=== PATIENT | male | born 1970 | race Caucasian/White ===

== ENCOUNTER 2022-09-12 17:27 | Inpatient (IN) | payer OTHER ==
[2022-09-12 19:26] LABS: BASO % 0.6 % (0-2.0); EOS % 1.4 % (0-4.5); HEMATOCRIT 37.7 % (35.4-49); HEMOGLOBIN 13.4 GM/dL (11.7-16.9); LYMPH % 31.2 % (8-40); MCH 30.8 pg (25.7-33.7); MCHC 35.5 g/dl (32.0-35.9); MEAN CELL VOLUME 86.9 fl (80-96); MEAN PLT VOLUME 8.4 fl (7.5-11.1); NEUT % 57.8 % (42.8-82.8); PLATELET COUNT 296 10^3/uL (134-434); RBC 4.33 M/mm3 (4.00-5.60); RDW 14.1 % (11.9-15.9)
[2022-09-12 19:32] LABS: INR 1.21 (0.83-1.09)
[2022-09-12 19:34] LABS: ACTIVATED PTT 39.1 SECONDS (25.2-36.5)
[2022-09-12 19:41] LABS: CHLORIDE 104 mmol/L (98-107); SODIUM 139 mmol/L (136-145)
[2022-09-12 19:43] LABS: CALCIUM 9.2 mg/dL (8.5-10.1)
[2022-09-12 19:44] LABS: ALBUMIN 3.4 g/dl (3.4-5.0); BLOOD UREA NITROGEN 8.9 mg/dL (7-18); CO2 27 mmol/L (21-32); GLUCOSE,RANDOM 83 mg/dL (74-106)
[2022-09-12 19:47] LABS: CREATININE 0.5 mg/dL (0.55-1.3); SGOT/AST 19 U/L (15-37); SGPT/ALT 21 U/L (13-61)
[2022-09-12 19:48] LABS: BILIRUBIN,TOTAL 0.9 mg/dL (0.2-1)
[2022-09-12 19:49] LABS: TOT PROT 7.7 g/dl (6.4-8.2)
[2022-09-12 19:50] LABS: ALK PHOS 115 U/L (45-117)
[2022-09-12 20:07] LABS: ANION GAP 8 MMOL/L (8-16); LACTIC ACID 2.2 mmol/L (0.4-2.0); POTASSIUM 2.9 mmol/L (3.5-5.1)
[2022-09-12 20:09] LABS: ERYTHROCYTE SEDIMENTATION RATE 25 mm/hr (0-20)
[2022-09-12] MEDS ORDERED: LACTATED RINGERS SOLUTION 1000 ML INFUS.BAG IV ONE (20:17)
[2022-09-12] MEDS ORDERED: KCL 10 MEQ IVPB 30 MEQ/300 ML INFUS.BAG IVPB ONE (20:32)
[2022-09-12 20:35] LABS: MAGNESIUM 1.8 mg/dL (1.8-2.4)
[2022-09-12] MEDS ORDERED: PIPERACILLIN/TAZOB 4.5 GM 4.5 GM in DEXTROSE 5%-WATER 100 ML IVPB ONE (20:38)
[2022-09-12] MEDS: KCL 10 MEQ IVPB 10 MEQ/100 ML INFUS.BAG IVPB SCH ×3 (20:40→23:48)
[2022-09-12] MEDS ORDERED: PIPERACILLIN/TAZOB 4.5 GM 4.5 GM/100 ML BAG IVPB ONE (20:41)
[2022-09-12] MEDS ORDERED: POTASSIUM CHLORIDE ORAL LIQUID 20 MEQ/15 ML PO ONE (20:50)
[2022-09-12] MEDS ORDERED: POTASSIUM CHLORIDE ORAL LIQUID 20 MEQ/15 ML ONE (21:10)
[2022-09-13] MEDS ORDERED: VANCOMYCIN 1,000 MG in DEXTROSE 5%-WATER - 250 ML IVPB SCH (01:15)
[2022-09-13 01:30] LABS: EPI CELLS 9 /uL (0-25.1); HYALINE CASTS 6 /uL (0-3.1); PH,URINE 7.5 (5.0-8.0); URINE APPEARANCE CLOUDY; URINE BACTERIA >9,000 /uL (0-1359); URINE BILIRUBIN NEGATIVE (NEGATIVE); URINE COLOR YELLOW; URINE GLUCOSE (UA) NEGATIVE (NEGATIVE); URINE KETONE 1+ (NEGATIVE); URINE LEUK ESTERASE 3+ (NEGATIVE); URINE NITRITE POSITIVE (NEGATIVE); URINE PROTEIN NEGATIVE (NEGATIVE); URINE RBC 40 /uL (0-23.9); URINE WBC 649 /uL (0-25.8)
[2022-09-13] MEDS ORDERED: PATIENT'S OWN MEDICATION (NON-FORMULARY) (Baclofen [Baclofen] 20 MG Tablet) GT SCH (03:30)
[2022-09-13] MEDS ORDERED: PIPERACILLIN/TAZOB 3.375 GM 3.375 GM in DEXTROSE 5%-WATER - 50 ML IVPB SCH (05:00)
[2022-09-13] MEDS ORDERED: PIPERACILLIN/TAZOB 3.375 GM 3.375 GM/50 ML BAG IVPB ONE (05:46)
[2022-09-13] MEDS ORDERED: VANCOMYCIN 500 MG VIAL (RESTRICTED TO ID ONLY) ONE (05:46)
[2022-09-13] MEDS: VANCOMYCIN 1,000 MG in DEXTROSE 5%-WATER - 250 ML IVPB SCH ×2 (05:52→14:24)
[2022-09-13] MEDS ORDERED: BACLOFEN 10 MG TABLET (FP) ONE (06:22)
[2022-09-13 06:46] LABS: BASO % 0.5 % (0-2.0); EOS % 1.4 % (0-4.5); HEMATOCRIT 33.5 % (35.4-49); HEMOGLOBIN 11.9 GM/dL (11.7-16.9); LYMPH % 16.9 % (8-40); MCH 30.4 pg (25.7-33.7); MCHC 35.5 g/dl (32.0-35.9); MEAN CELL VOLUME 85.7 fl (80-96); MEAN PLT VOLUME 8.2 fl (7.5-11.1); MONO % 8.8 % (3.8-10.2); NEUT % 72.4 % (42.8-82.8); PLATELET COUNT 278 10^3/uL (134-434); RBC 3.91 M/mm3 (4.00-5.60); RDW 14.1 % (11.9-15.9); WHITE BLOOD COUNT 8.9 K/mm3 (4.0-10.0)
[2022-09-13 06:51] LABS: POTASSIUM 3.3 mmol/L (3.5-5.1)
[2022-09-13 06:54] LABS: ALBUMIN 3.1 g/dl (3.4-5.0); CALCIUM 9.1 mg/dL (8.5-10.1)
[2022-09-13 06:55] LABS: BLOOD UREA NITROGEN 6.7 mg/dL (7-18); MAGNESIUM 1.4 mg/dL (1.8-2.4)
[2022-09-13 06:57] LABS: CREATININE 0.4 mg/dL (0.55-1.3); PHOSPHOROUS 2.1 mg/dL (2.5-4.9)
[2022-09-13 06:59] LABS: BILIRUBIN,TOTAL 1.2 mg/dL (0.2-1); TOT PROT 6.9 g/dl (6.4-8.2)
[2022-09-13] MEDS ORDERED: POTASSIUM CHLORIDE ORAL LIQUID 20 MEQ/15 ML PO ONE (09:53)
[2022-09-13] MEDS ORDERED: LISINOPRIL 5 MG TABLET ONE (12:13)
[2022-09-13] MEDS ORDERED: CHOLECALCIFEROL (VIT D3) 1,000 UNIT (25 MCG) TABLET ONE (12:13)
[2022-09-13] MEDS ORDERED: THIAMINE HCL 100 MG TABLET (FP) ONE (12:13)
[2022-09-13] MEDS ORDERED: ENOXAPARIN NA (PORCINE) 40 MG/0.4 ML DISP.SYRIN SQ ONE (12:14)
[2022-09-13] MEDS ORDERED: PIPERACILLIN/TAZOB 2.25 GM 2.25 GM/50 ML BAG IVPB ONE (12:14)
[2022-09-13] MEDS: PIPERACILLIN/TAZOB 3.375 GM 3.375 GM in DEXTROSE 5%-WATER - 50 ML IVPB SCH ×2 (12:31→14:24)
[2022-09-13] MEDS: INSULIN SLIDING SCALE (NOVOLOG) 1 VIAL SQ SCH ×2 (12:32→17:50)
[2022-09-13] MEDS: ASCORBIC ACID 500 MG/5 ML UNIT DOSE CUP GT SCH ×2 (12:33→22:55)
[2022-09-13] MEDS: LISINOPRIL 5 MG TABLET GT SCH (12:33)
[2022-09-13] MEDS: THIAMINE HCL 100 MG TABLET (FP) NGT SCH (12:33)
[2022-09-13] MEDS: ENOXAPARIN NA (PORCINE) 40 MG/0.4 ML DISP.SYRIN SQ SCH (12:33)
[2022-09-13] MEDS: CHOLECALCIFEROL (VIT D3) 1,000 UNIT (25 MCG) TABLET GT SCH (12:33)
[2022-09-13] MEDS: BACLOFEN 10 MG TABLET (FP) GT SCH ×2 (17:46→22:55)
[2022-09-13] MEDS ORDERED: DEXTROSE 5%-LACTATED RINGERS 1,000 ML IV SCH (21:15)
[2022-09-13] MEDS ORDERED: NAPH,MB-DB/K PH,MBDB POWDER PACKET GT ONE (21:19)
[2022-09-13] MEDS ORDERED: MAGNESIUM SULF 50% (8.12 MEQ/2 ML-1 GM VIAL) IVPB ONE (21:20)
[2022-09-13] MEDS ORDERED: DEXTROSE 50%-WATER 25 GM/50 ML DISP.SYRIN IVPUSH PRN (21:21)
[2022-09-13] MEDS ORDERED: THIAMINE HCL 200 MG/2 ML VIAL IVPB ONE (21:21)
[2022-09-13] MEDS: POLYETHYLENE GLYCOL (HEALTHYLAX) 3350 17 GM PACKET GT SCH (22:55)
[2022-09-14] MEDS: BACLOFEN 10 MG TABLET (FP) GT SCH ×3 (05:26→22:17)
[2022-09-14] MEDS: INSULIN SLIDING SCALE (NOVOLOG) 1 VIAL SQ SCH ×4 (06:08→22:17)
[2022-09-14 10:54] LABS: BASO % 0.4 % (0-2.0); EOS % 0.7 % (0-4.5); HEMATOCRIT 31.4 % (35.4-49); HEMOGLOBIN 10.8 GM/dL (11.7-16.9); LYMPH % 18.2 % (8-40); MCHC 34.4 g/dl (32.0-35.9); MEAN CELL VOLUME 87.3 fl (80-96); MEAN PLT VOLUME 7.6 fl (7.5-11.1); MONO % 12.3 % (3.8-10.2); NEUT % 68.4 % (42.8-82.8); PLATELET COUNT 247 10^3/uL (134-434); RDW 14.2 % (11.9-15.9); WHITE BLOOD COUNT 8.1 K/mm3 (4.0-10.0)
[2022-09-14 11:00] LABS: CHLORIDE 108 mmol/L (98-107); SODIUM 142 mmol/L (136-145)
[2022-09-14 11:03] LABS: CALCIUM 8.8 mg/dL (8.5-10.1)
[2022-09-14 11:04] LABS: ALBUMIN 2.7 g/dl (3.4-5.0); BLOOD UREA NITROGEN 6.8 mg/dL (7-18); CO2 27 mmol/L (21-32); GLUCOSE,RANDOM 132 mg/dL (74-106); MAGNESIUM 2.1 mg/dL (1.8-2.4)
[2022-09-14 11:07] LABS: CREATININE 0.6 mg/dL (0.55-1.3); SGOT/AST 14 U/L (15-37); SGPT/ALT 16 U/L (13-61)
[2022-09-14 11:09] LABS: BILIRUBIN,TOTAL 0.9 mg/dL (0.2-1); TOT PROT 6.1 g/dl (6.4-8.2)
[2022-09-14 11:10] LABS: ALK PHOS 84 U/L (45-117)
[2022-09-14] MEDS: THIAMINE HCL 100 MG TABLET (FP) NGT SCH (11:12)
[2022-09-14] MEDS: ASCORBIC ACID 500 MG/5 ML UNIT DOSE CUP GT SCH ×2 (11:12→22:18)
[2022-09-14] MEDS: CHOLECALCIFEROL (VIT D3) 1,000 UNIT (25 MCG) TABLET GT SCH (11:12)
[2022-09-14] MEDS: POLYETHYLENE GLYCOL (HEALTHYLAX) 3350 17 GM PACKET GT SCH ×2 (11:12→22:17)
[2022-09-14] MEDS: ENOXAPARIN NA (PORCINE) 40 MG/0.4 ML DISP.SYRIN SQ SCH (11:12)
[2022-09-14 11:17] LABS: ANION GAP 6 MMOL/L (8-16); POTASSIUM 2.9 mmol/L (3.5-5.1)
[2022-09-14] MEDS: LISINOPRIL 5 MG TABLET GT SCH (13:17)
[2022-09-14] MEDS: POTASSIUM CHLORIDE ORAL LIQUID 20 MEQ/15 ML GT SCH ×2 (13:18→22:17)
[2022-09-14 14:47] VITALS: BMI 23.3
[2022-09-15] MEDS: INSULIN SLIDING SCALE (NOVOLOG) 1 VIAL SQ SCH ×4 (06:04→21:45)
[2022-09-15] MEDS: BACLOFEN 10 MG TABLET (FP) GT SCH ×3 (06:05→21:48)
[2022-09-15] MEDS ORDERED: LACTATED RINGERS SOLUTION 1000 ML INFUS.BAG IV ONE (08:52)
[2022-09-15 10:09] LABS: BASO % 0.5 % (0-2.0); EOS % 1.2 % (0-4.5); HEMATOCRIT 31.3 % (35.4-49); HEMOGLOBIN 10.9 GM/dL (11.7-16.9); LYMPH % 30.4 % (8-40); MCH 30.2 pg (25.7-33.7); MCHC 34.8 g/dl (32.0-35.9); MEAN CELL VOLUME 86.7 fl (80-96); MEAN PLT VOLUME 7.4 fl (7.5-11.1); MONO % 14.1 % (3.8-10.2); NEUT % 53.8 % (42.8-82.8); PLATELET COUNT 257 10^3/uL (134-434); RBC 3.61 M/mm3 (4.00-5.60); RDW 14.4 % (11.9-15.9); WHITE BLOOD COUNT 6.1 K/mm3 (4.0-10.0)
[2022-09-15 10:21] LABS: POTASSIUM 3.9 mmol/L (3.5-5.1)
[2022-09-15 10:23] LABS: CALCIUM 8.8 mg/dL (8.5-10.1)
[2022-09-15 10:24] LABS: ALBUMIN 2.7 g/dl (3.4-5.0); BLOOD UREA NITROGEN 8.1 mg/dL (7-18); MAGNESIUM 1.7 mg/dL (1.8-2.4)
[2022-09-15 10:27] LABS: CREATININE 0.5 mg/dL (0.55-1.3); PHOSPHOROUS 2.3 mg/dL (2.5-4.9)
[2022-09-15 10:28] LABS: BILIRUBIN,TOTAL 0.8 mg/dL (0.2-1); TOT PROT 6.2 g/dl (6.4-8.2)
[2022-09-15] MEDS: CHOLECALCIFEROL (VIT D3) 1,000 UNIT (25 MCG) TABLET GT SCH (11:06)
[2022-09-15] MEDS: ENOXAPARIN NA (PORCINE) 40 MG/0.4 ML DISP.SYRIN SQ SCH (11:06)
[2022-09-15] MEDS: POLYETHYLENE GLYCOL (HEALTHYLAX) 3350 17 GM PACKET GT SCH ×2 (11:06→21:48)
[2022-09-15] MEDS: ASCORBIC ACID 500 MG/5 ML UNIT DOSE CUP GT SCH ×2 (11:06→21:49)
[2022-09-15] MEDS: THIAMINE HCL 100 MG TABLET (FP) NGT SCH (11:06)
[2022-09-15] MEDS: LISINOPRIL 5 MG TABLET GT SCH (11:26)
[2022-09-15 14:40] LABS: EPI CELLS >36 /uL (0-25.1); HYALINE CASTS 16 /uL (0-3.1); PH,URINE 6.5 (5.0-8.0); URINE APPEARANCE TURBID; URINE BACTERIA >9,000 /uL (0-1359); URINE BILIRUBIN NEGATIVE (NEGATIVE); URINE COLOR DK YELLOW; URINE GLUCOSE (UA) NEGATIVE (NEGATIVE); URINE KETONE TRACE (NEGATIVE); URINE LEUK ESTERASE 3+ (NEGATIVE); URINE NITRITE POSITIVE (NEGATIVE); URINE PROTEIN 2+ (NEGATIVE); URINE RBC 1891 /uL (0-23.9); URINE UROBILINOGEN 4.0 E.U/dl mg/dL (0.2-1.0); URINE WBC 3791 /uL (0-25.8)
[2022-09-15] MEDS ORDERED: CEFTRIAXONE 1 GM in DEXTROSE 5%-WATER - 50 ML IVPB ONE (15:00)
[2022-09-15 15:12] LABS: URINE CRYSTALS PRESENT /hpf
[2022-09-15] MEDS: NAPH,MB-DB/K PH,MBDB POWDER PACKET GT SCH ×2 (17:53→21:48)
[2022-09-16] MEDS ORDERED: ACETAMINOPHEN 1000 MG/100 ML BAG IVPB PRN (04:01)
[2022-09-16] MEDS: BACLOFEN 10 MG TABLET (FP) GT SCH ×3 (06:43→21:25)
[2022-09-16] MEDS: INSULIN SLIDING SCALE (NOVOLOG) 1 VIAL SQ SCH ×4 (06:45→21:46)
[2022-09-16] MEDS ORDERED: MEROPENEM 1 GM in DEXTROSE 5%-WATER 100 ML IVPB SCH (09:15)
[2022-09-16] MEDS ORDERED: CEFTRIAXONE 1 GM in DEXTROSE 5%-WATER - 50 ML IVPB SCH (10:00)
[2022-09-16] MEDS: POLYETHYLENE GLYCOL (HEALTHYLAX) 3350 17 GM PACKET GT SCH ×2 (10:10→21:25)
[2022-09-16] MEDS: THIAMINE HCL 100 MG TABLET (FP) NGT SCH (10:10)
[2022-09-16] MEDS: NAPH,MB-DB/K PH,MBDB POWDER PACKET GT SCH ×2 (10:11→21:25)
[2022-09-16] MEDS: ASCORBIC ACID 500 MG/5 ML UNIT DOSE CUP GT SCH ×2 (10:11→21:25)
[2022-09-16 10:12] LABS: BASO % 0.4 % (0-2.0); EOS % 2.8 % (0-4.5); HEMATOCRIT 32.4 % (35.4-49); HEMOGLOBIN 10.8 GM/dL (11.7-16.9); LYMPH % 24.9 % (8-40); MCH 29.2 pg (25.7-33.7); MCHC 33.5 g/dl (32.0-35.9); MEAN CELL VOLUME 87.3 fl (80-96); MONO % 10.4 % (3.8-10.2); NEUT % 61.5 % (42.8-82.8); PLATELET COUNT 263 10^3/uL (134-434); RBC 3.71 M/mm3 (4.00-5.60); RDW 14.5 % (11.9-15.9); WHITE BLOOD COUNT 6.8 K/mm3 (4.0-10.0)
[2022-09-16] MEDS: CHOLECALCIFEROL (VIT D3) 1,000 UNIT (25 MCG) TABLET GT SCH (10:12)
[2022-09-16] MEDS: ENOXAPARIN NA (PORCINE) 40 MG/0.4 ML DISP.SYRIN SQ SCH (10:27)
[2022-09-16 10:30] LABS: POTASSIUM 4.1 mmol/L (3.5-5.1)
[2022-09-16 10:38] LABS: ALBUMIN 2.6 g/dl (3.4-5.0); CREATININE 0.6 mg/dL (0.55-1.3)
[2022-09-16 10:39] LABS: BLOOD UREA NITROGEN 12.4 mg/dL (7-18); CALCIUM 8.7 mg/dL (8.5-10.1)
[2022-09-16 10:40] LABS: BILIRUBIN,TOTAL 0.5 mg/dL (0.2-1); MAGNESIUM 1.8 mg/dL (1.8-2.4); TOT PROT 6.3 g/dl (6.4-8.2)
[2022-09-16 10:41] LABS: PHOSPHOROUS 3.2 mg/dL (2.5-4.9)
[2022-09-16] MEDS: BACITRACIN ZINC 15 GM TUBE TOPICAL OINTMENT TP SCH (13:11)
[2022-09-16] MEDS: MEROPENEM 1 GM in DEXTROSE 5%-WATER 100 ML IVPB SCH (18:15)
[2022-09-17] MEDS: MEROPENEM 1 GM in DEXTROSE 5%-WATER 100 ML IVPB SCH ×3 (01:39→17:37)
[2022-09-17] MEDS: BACLOFEN 10 MG TABLET (FP) GT SCH (05:14)
[2022-09-17] MEDS: INSULIN SLIDING SCALE (NOVOLOG) 1 VIAL SQ SCH ×4 (09:43→21:42)
[2022-09-17] MEDS: NAPH,MB-DB/K PH,MBDB POWDER PACKET GT SCH ×2 (10:22→21:42)
[2022-09-17] MEDS: THIAMINE HCL 100 MG TABLET (FP) NGT SCH (10:23)
[2022-09-17] MEDS: POLYETHYLENE GLYCOL (HEALTHYLAX) 3350 17 GM PACKET GT SCH ×2 (10:23→21:42)
[2022-09-17] MEDS: ENOXAPARIN NA (PORCINE) 40 MG/0.4 ML DISP.SYRIN SQ SCH (10:23)
[2022-09-17] MEDS: CHOLECALCIFEROL (VIT D3) 1,000 UNIT (25 MCG) TABLET GT SCH (10:23)
[2022-09-17] MEDS: BACITRACIN ZINC 15 GM TUBE TOPICAL OINTMENT TP SCH (10:23)
[2022-09-17] MEDS: ASCORBIC ACID 500 MG/5 ML UNIT DOSE CUP GT SCH ×2 (11:16→21:43)
[2022-09-18] MEDS: MEROPENEM 1 GM in DEXTROSE 5%-WATER 100 ML IVPB SCH ×3 (01:37→17:14)
[2022-09-18] MEDS: INSULIN SLIDING SCALE (NOVOLOG) 1 VIAL SQ SCH ×4 (06:55→21:42)
[2022-09-18] MEDS: ASCORBIC ACID 500 MG/5 ML UNIT DOSE CUP GT SCH ×2 (09:54→21:26)
[2022-09-18] MEDS: ENOXAPARIN NA (PORCINE) 40 MG/0.4 ML DISP.SYRIN SQ SCH (09:54)
[2022-09-18] MEDS: POLYETHYLENE GLYCOL (HEALTHYLAX) 3350 17 GM PACKET GT SCH ×2 (09:54→21:26)
[2022-09-18] MEDS: THIAMINE HCL 100 MG TABLET (FP) NGT SCH (09:55)
[2022-09-18] MEDS: CHOLECALCIFEROL (VIT D3) 1,000 UNIT (25 MCG) TABLET GT SCH (09:55)
[2022-09-18] MEDS: BACITRACIN ZINC 15 GM TUBE TOPICAL OINTMENT TP SCH (09:55)
[2022-09-18] MEDS: NAPH,MB-DB/K PH,MBDB POWDER PACKET GT SCH ×2 (09:55→21:26)
[2022-09-18 11:29] LABS: BASO % 0.5 % (0-2.0); EOS % 3.2 % (0-4.5); HEMATOCRIT 34.8 % (35.4-49); HEMOGLOBIN 12.1 GM/dL (11.7-16.9); LYMPH % 34.2 % (8-40); MCHC 34.7 g/dl (32.0-35.9); MEAN CELL VOLUME 86.5 fl (80-96); MEAN PLT VOLUME 7.9 fl (7.5-11.1); MONO % 10.3 % (3.8-10.2); NEUT % 51.8 % (42.8-82.8); PLATELET COUNT 307 10^3/uL (134-434); RBC 4.03 M/mm3 (4.00-5.60); RDW 14.2 % (11.9-15.9); WHITE BLOOD COUNT 6.3 K/mm3 (4.0-10.0)
[2022-09-18 11:41] LABS: POTASSIUM 4.5 mmol/L (3.5-5.1)
[2022-09-18 11:44] LABS: BLOOD UREA NITROGEN 10.3 mg/dL (7-18); CALCIUM 9.3 mg/dL (8.5-10.1)
[2022-09-18 11:47] LABS: CREATININE 0.5 mg/dL (0.55-1.3)
[2022-09-18] MEDS ORDERED: MEROPENEM 1 GM VIAL (RESTRICTED TO ID) IVPB ONE (17:09)
[2022-09-19] MEDS: MEROPENEM 1 GM in DEXTROSE 5%-WATER 100 ML IVPB SCH ×3 (01:55→17:11)
[2022-09-19] MEDS: INSULIN SLIDING SCALE (NOVOLOG) 1 VIAL SQ SCH ×4 (09:32→21:59)
[2022-09-19] MEDS: ENOXAPARIN NA (PORCINE) 40 MG/0.4 ML DISP.SYRIN SQ SCH (09:34)
[2022-09-19] MEDS: BACITRACIN ZINC 15 GM TUBE TOPICAL OINTMENT TP SCH (09:34)
[2022-09-19] MEDS: THIAMINE HCL 100 MG TABLET (FP) NGT SCH (10:09)
[2022-09-19] MEDS: NAPH,MB-DB/K PH,MBDB POWDER PACKET GT SCH ×2 (10:09→21:46)
[2022-09-19] MEDS: CHOLECALCIFEROL (VIT D3) 1,000 UNIT (25 MCG) TABLET GT SCH (10:09)
[2022-09-19] MEDS: POLYETHYLENE GLYCOL (HEALTHYLAX) 3350 17 GM PACKET GT SCH ×2 (10:09→21:46)
[2022-09-19] MEDS: ASCORBIC ACID 500 MG/5 ML UNIT DOSE CUP GT SCH ×2 (10:22→21:46)
[2022-09-20] MEDS: MEROPENEM 1 GM in DEXTROSE 5%-WATER 100 ML IVPB SCH ×3 (01:25→17:49)
[2022-09-20 09:33] LABS: BASO % 0.9 % (0-2.0); EOS % 4.4 % (0-4.5); HEMATOCRIT 33.5 % (35.4-49); HEMOGLOBIN 11.8 GM/dL (11.7-16.9); LYMPH % 32.9 % (8-40); MCH 30.1 pg (25.7-33.7); MCHC 35.1 g/dl (32.0-35.9); MEAN CELL VOLUME 85.7 fl (80-96); MONO % 10.2 % (3.8-10.2); NEUT % 51.6 % (42.8-82.8); PLATELET COUNT 290 10^3/uL (134-434); RBC 3.91 M/mm3 (4.00-5.60); RDW 14.2 % (11.9-15.9); WHITE BLOOD COUNT 5.6 K/mm3 (4.0-10.0)
[2022-09-20 09:38] LABS: INR 1.26 (0.83-1.09); PROTHROMBIN TIME (PATIENT) 14.6 SEC (9.7-13.0)
[2022-09-20 09:52] LABS: POTASSIUM 3.4 mmol/L (3.5-5.1)
[2022-09-20 10:03] LABS: BLOOD UREA NITROGEN 12.1 mg/dL (7-18)
[2022-09-20 10:04] LABS: ALBUMIN 2.8 g/dl (3.4-5.0)
[2022-09-20 10:08] LABS: CREATININE 0.4 mg/dL (0.55-1.3)
[2022-09-20 10:09] LABS: BILIRUBIN,TOTAL 0.8 mg/dL (0.2-1); TOT PROT 6.6 g/dl (6.4-8.2)
[2022-09-20] MEDS: MULTIVITAMINS (DAILY MVI) TABLET (FP) PO SCH (12:29)
[2022-09-20] MEDS: NAPH,MB-DB/K PH,MBDB POWDER PACKET GT SCH ×2 (12:29→21:05)
[2022-09-20] MEDS: FOLIC ACID 1 MG TABLET (FP) PO SCH (12:29)
[2022-09-20] MEDS: CHOLECALCIFEROL (VIT D3) 1,000 UNIT (25 MCG) TABLET GT SCH (12:29)
[2022-09-20] MEDS: THIAMINE HCL 100 MG TABLET (FP) NGT SCH (12:29)
[2022-09-20] MEDS: BACITRACIN ZINC 15 GM TUBE TOPICAL OINTMENT TP SCH (12:29)
[2022-09-20] MEDS: POLYETHYLENE GLYCOL (HEALTHYLAX) 3350 17 GM PACKET GT SCH ×2 (12:29→21:05)
[2022-09-20] MEDS: ASCORBIC ACID 500 MG/5 ML UNIT DOSE CUP GT SCH ×2 (12:29→21:09)
[2022-09-20] MEDS: INSULIN SLIDING SCALE (NOVOLOG) 1 VIAL SQ SCH ×4 (12:30→21:05)
[2022-09-21] MEDS: MEROPENEM 1 GM in DEXTROSE 5%-WATER 100 ML IVPB SCH ×3 (01:41→18:06)
[2022-09-21] MEDS: INSULIN SLIDING SCALE (NOVOLOG) 1 VIAL SQ SCH ×4 (06:03→21:54)
[2022-09-21 10:14] LABS: BASO % 0.8 % (0-2.0); HEMATOCRIT 32.7 % (35.4-49); HEMOGLOBIN 11.5 GM/dL (11.7-16.9); LYMPH % 30.5 % (8-40); MCH 30.4 pg (25.7-33.7); MCHC 35.3 g/dl (32.0-35.9); MEAN CELL VOLUME 86.1 fl (80-96); MEAN PLT VOLUME 8.3 fl (7.5-11.1); MONO % 8.8 % (3.8-10.2); NEUT % 55.9 % (42.8-82.8); PLATELET COUNT 325 10^3/uL (134-434); RBC 3.79 M/mm3 (4.00-5.60); RDW 14.1 % (11.9-15.9); WHITE BLOOD COUNT 6.8 K/mm3 (4.0-10.0)
[2022-09-21 10:32] LABS: POTASSIUM 3.6 mmol/L (3.5-5.1)
[2022-09-21 10:34] LABS: CALCIUM 9.1 mg/dL (8.5-10.1)
[2022-09-21 10:35] LABS: ALBUMIN 2.9 g/dl (3.4-5.0); BLOOD UREA NITROGEN 11.9 mg/dL (7-18)
[2022-09-21 10:38] LABS: CREATININE 0.5 mg/dL (0.55-1.3)
[2022-09-21 10:39] LABS: BILIRUBIN,TOTAL 0.5 mg/dL (0.2-1); TOT PROT 6.7 g/dl (6.4-8.2)
[2022-09-21] MEDS: POLYETHYLENE GLYCOL (HEALTHYLAX) 3350 17 GM PACKET GT SCH ×2 (11:14→21:41)
[2022-09-21] MEDS: BACITRACIN ZINC 15 GM TUBE TOPICAL OINTMENT TP SCH (11:14)
[2022-09-21] MEDS: FOLIC ACID 1 MG TABLET (FP) PO SCH (11:14)
[2022-09-21] MEDS: MULTIVITAMINS (DAILY MVI) TABLET (FP) PO SCH (11:15)
[2022-09-21] MEDS: THIAMINE HCL 100 MG TABLET (FP) NGT SCH (11:15)
[2022-09-21] MEDS: NAPH,MB-DB/K PH,MBDB POWDER PACKET GT SCH ×2 (11:15→21:41)
[2022-09-21] MEDS: CHOLECALCIFEROL (VIT D3) 1,000 UNIT (25 MCG) TABLET GT SCH (11:16)
[2022-09-21] MEDS: ASCORBIC ACID 500 MG/5 ML UNIT DOSE CUP GT SCH ×2 (11:22→21:41)
[2022-09-22] MEDS ORDERED: MEROPENEM 1 GM VIAL (RESTRICTED TO ID) IVPB ONE (01:11)
[2022-09-22] MEDS: MEROPENEM 1 GM in DEXTROSE 5%-WATER 100 ML IVPB SCH ×3 (01:58→17:49)
[2022-09-22] MEDS: INSULIN SLIDING SCALE (NOVOLOG) 1 VIAL SQ SCH ×4 (07:53→21:57)
[2022-09-22 09:09] LABS: BASO % 0.7 % (0-2.0); EOS % 3.1 % (0-4.5); HEMATOCRIT 33.4 % (35.4-49); LYMPH % 30.4 % (8-40); MCH 30.9 pg (25.7-33.7); MCHC 35.8 g/dl (32.0-35.9); MEAN CELL VOLUME 86.4 fl (80-96); MEAN PLT VOLUME 8.3 fl (7.5-11.1); MONO % 8.3 % (3.8-10.2); NEUT % 57.5 % (42.8-82.8); PLATELET COUNT 351 10^3/uL (134-434); RBC 3.87 M/mm3 (4.00-5.60); RDW 14.1 % (11.9-15.9); WHITE BLOOD COUNT 6.8 K/mm3 (4.0-10.0)
[2022-09-22 09:16] LABS: INR 1.17 (0.83-1.09); PROTHROMBIN TIME (PATIENT) 13.5 SEC (9.7-13.0)
[2022-09-22] MEDS: BACITRACIN ZINC 15 GM TUBE TOPICAL OINTMENT TP SCH (09:16)
[2022-09-22] MEDS: FOLIC ACID 1 MG TABLET (FP) PO SCH (09:17)
[2022-09-22] MEDS: POLYETHYLENE GLYCOL (HEALTHYLAX) 3350 17 GM PACKET GT SCH ×2 (09:17→21:57)
[2022-09-22 09:18] LABS: ACTIVATED PTT 35.7 SECONDS (25.2-36.5)
[2022-09-22] MEDS: NAPH,MB-DB/K PH,MBDB POWDER PACKET GT SCH ×2 (09:18→21:57)
[2022-09-22] MEDS: CHOLECALCIFEROL (VIT D3) 1,000 UNIT (25 MCG) TABLET GT SCH (09:19)
[2022-09-22] MEDS: MULTIVITAMINS (DAILY MVI) TABLET (FP) PO SCH (09:19)
[2022-09-22] MEDS: THIAMINE HCL 100 MG TABLET (FP) NGT SCH (09:19)
[2022-09-22] MEDS: LISINOPRIL 5 MG TABLET GT SCH (09:27)
[2022-09-22] MEDS: ASCORBIC ACID 500 MG/5 ML UNIT DOSE CUP GT SCH ×2 (09:29→22:23)
[2022-09-22 09:33] LABS: POTASSIUM 3.8 mmol/L (3.5-5.1)
[2022-09-22 09:34] LABS: ALBUMIN 2.8 g/dl (3.4-5.0); BLOOD UREA NITROGEN 13.7 mg/dL (7-18); CALCIUM 8.7 mg/dL (8.5-10.1)
[2022-09-22 09:38] LABS: CREATININE 0.5 mg/dL (0.55-1.3); PHOSPHOROUS 2.7 mg/dL (2.5-4.9)
[2022-09-22 09:40] LABS: BILIRUBIN,TOTAL 0.4 mg/dL (0.2-1); TOT PROT 6.7 g/dl (6.4-8.2)
[2022-09-23] MEDS: MEROPENEM 1 GM in DEXTROSE 5%-WATER 100 ML IVPB SCH ×2 (01:56→09:19)
[2022-09-23] MEDS: NAPH,MB-DB/K PH,MBDB POWDER PACKET GT SCH ×2 (09:19→21:06)
[2022-09-23] MEDS: MULTIVITAMINS (DAILY MVI) TABLET (FP) PO SCH (09:19)
[2022-09-23] MEDS: THIAMINE HCL 100 MG TABLET (FP) NGT SCH (09:19)
[2022-09-23] MEDS: CHOLECALCIFEROL (VIT D3) 1,000 UNIT (25 MCG) TABLET GT SCH (09:19)
[2022-09-23] MEDS: ASCORBIC ACID 500 MG/5 ML UNIT DOSE CUP GT SCH ×2 (09:20→21:06)
[2022-09-23] MEDS: FOLIC ACID 1 MG TABLET (FP) PO SCH (09:20)
[2022-09-23] MEDS: POLYETHYLENE GLYCOL (HEALTHYLAX) 3350 17 GM PACKET GT SCH ×2 (09:20→21:06)
[2022-09-23] MEDS: BACITRACIN ZINC 15 GM TUBE TOPICAL OINTMENT TP SCH (09:30)
[2022-09-23] MEDS: LISINOPRIL 5 MG TABLET GT SCH (10:45)
[2022-09-23 10:46] LABS: BASO % 0.7 % (0-2.0); EOS % 2.8 % (0-4.5); HEMATOCRIT 33.9 % (35.4-49); HEMOGLOBIN 12.1 GM/dL (11.7-16.9); LYMPH % 29.9 % (8-40); MCH 30.9 pg (25.7-33.7); MCHC 35.8 g/dl (32.0-35.9); MEAN CELL VOLUME 86.2 fl (80-96); MEAN PLT VOLUME 8.3 fl (7.5-11.1); MONO % 7.8 % (3.8-10.2); NEUT % 58.8 % (42.8-82.8); PLATELET COUNT 334 10^3/uL (134-434); RBC 3.93 M/mm3 (4.00-5.60); RDW 14.1 % (11.9-15.9); WHITE BLOOD COUNT 7.4 K/mm3 (4.0-10.0)
[2022-09-23 11:03] LABS: POTASSIUM 4.5 mmol/L (3.5-5.1)
[2022-09-23 11:10] LABS: CREATININE 0.5 mg/dL (0.55-1.3)
[2022-09-23] MEDS: INSULIN SLIDING SCALE (NOVOLOG) 1 VIAL SQ SCH ×4 (11:10→21:06)
[2022-09-23] MEDS: ENOXAPARIN NA (PORCINE) 40 MG/0.4 ML DISP.SYRIN SQ SCH (11:24)
[2022-09-24] MEDS: INSULIN SLIDING SCALE (NOVOLOG) 1 VIAL SQ SCH ×4 (06:10→22:33)
[2022-09-24] MEDS: LISINOPRIL 5 MG TABLET GT SCH (10:42)
[2022-09-24] MEDS: BACITRACIN ZINC 15 GM TUBE TOPICAL OINTMENT TP SCH (10:42)
[2022-09-24] MEDS: MULTIVITAMINS (DAILY MVI) TABLET (FP) PO SCH (10:42)
[2022-09-24] MEDS: ENOXAPARIN NA (PORCINE) 40 MG/0.4 ML DISP.SYRIN SQ SCH (10:42)
[2022-09-24] MEDS: POLYETHYLENE GLYCOL (HEALTHYLAX) 3350 17 GM PACKET GT SCH ×2 (10:42→22:32)
[2022-09-24] MEDS: NAPH,MB-DB/K PH,MBDB POWDER PACKET GT SCH ×2 (10:42→22:32)
[2022-09-24] MEDS: THIAMINE HCL 100 MG TABLET (FP) NGT SCH (10:42)
[2022-09-24] MEDS: ASCORBIC ACID 500 MG/5 ML UNIT DOSE CUP GT SCH ×2 (10:42→22:33)
[2022-09-24] MEDS: CHOLECALCIFEROL (VIT D3) 1,000 UNIT (25 MCG) TABLET GT SCH (10:42)
[2022-09-24] MEDS: FOLIC ACID 1 MG TABLET (FP) PO SCH (10:42)
[2022-09-24 11:19] LABS: LACTIC ACID 2.5 mmol/L (0.4-2.0)
[2022-09-24] MEDS: MEROPENEM 1 GM in DEXTROSE 5%-WATER 100 ML IVPB SCH ×2 (12:24→22:32)
[2022-09-24 12:34] LABS: EPI CELLS 10 /uL (0-25.1); HYALINE CASTS 1 /uL (0-3.1); URINE APPEARANCE CLOUDY; URINE BACTERIA 34 /uL (0-1359); URINE BILIRUBIN NEGATIVE (NEGATIVE); URINE COLOR YELLOW; URINE GLUCOSE (UA) NEGATIVE (NEGATIVE); URINE KETONE NEGATIVE (NEGATIVE); URINE LEUK ESTERASE NEGATIVE (NEGATIVE); URINE NITRITE NEGATIVE (NEGATIVE); URINE PROTEIN 2+ (NEGATIVE); URINE RBC 1598 /uL (0-23.9); URINE UROBILINOGEN 0.2 mg/dL (0.2-1.0); URINE WBC 12 /uL (0-25.8)
[2022-09-24] MEDS: SODIUM CHLORIDE 1,000 ML IV SCH (18:47)
[2022-09-24] MEDS: IBUPROFEN 800 MG/8 ML IJ IVPB PRN (21:45)
[2022-09-25] MEDS: SODIUM CHLORIDE 1,000 ML IV SCH ×2 (04:52→19:24)
[2022-09-25] MEDS: INSULIN SLIDING SCALE (NOVOLOG) 1 VIAL SQ SCH ×4 (06:00→21:26)
[2022-09-25] MEDS: POLYETHYLENE GLYCOL (HEALTHYLAX) 3350 17 GM PACKET GT SCH ×2 (09:37→21:25)
[2022-09-25] MEDS: ENOXAPARIN NA (PORCINE) 40 MG/0.4 ML DISP.SYRIN SQ SCH (09:37)
[2022-09-25] MEDS: MULTIVITAMINS (DAILY MVI) TABLET (FP) PO SCH (09:38)
[2022-09-25] MEDS: LISINOPRIL 5 MG TABLET GT SCH (09:38)
[2022-09-25] MEDS: ASCORBIC ACID 500 MG/5 ML UNIT DOSE CUP GT SCH ×2 (09:38→21:25)
[2022-09-25] MEDS: NAPH,MB-DB/K PH,MBDB POWDER PACKET GT SCH ×2 (09:38→21:25)
[2022-09-25] MEDS: FOLIC ACID 1 MG TABLET (FP) PO SCH (09:38)
[2022-09-25] MEDS: THIAMINE HCL 100 MG TABLET (FP) NGT SCH (09:38)
[2022-09-25] MEDS: CHOLECALCIFEROL (VIT D3) 1,000 UNIT (25 MCG) TABLET GT SCH (09:38)
[2022-09-25] MEDS: BACITRACIN ZINC 15 GM TUBE TOPICAL OINTMENT TP SCH (09:38)
[2022-09-25 12:48] LABS: BASO % 0.6 % (0-2.0); EOS % 2.2 % (0-4.5); HEMATOCRIT 35.6 % (35.4-49); LYMPH % 21.9 % (8-40); MCH 29.4 pg (25.7-33.7); MCHC 33.7 g/dl (32.0-35.9); MEAN CELL VOLUME 87.3 fl (80-96); MEAN PLT VOLUME 7.9 fl (7.5-11.1); MONO % 9.8 % (3.8-10.2); NEUT % 65.5 % (42.8-82.8); PLATELET COUNT 372 10^3/uL (134-434); RBC 4.08 M/mm3 (4.00-5.60); RDW 14.8 % (11.9-15.9); WHITE BLOOD COUNT 10.3 K/mm3 (4.0-10.0)
[2022-09-25 13:11] LABS: POTASSIUM 3.9 mmol/L (3.5-5.1)
[2022-09-25 13:14] LABS: ALBUMIN 2.8 g/dl (3.4-5.0); BLOOD UREA NITROGEN 25.2 mg/dL (7-18); CALCIUM 8.8 mg/dL (8.5-10.1); MAGNESIUM 2.1 mg/dL (1.8-2.4)
[2022-09-25 13:17] LABS: CREATININE 0.6 mg/dL (0.55-1.3); PHOSPHOROUS 2.6 mg/dL (2.5-4.9)
[2022-09-25 13:18] LABS: TOT PROT 6.9 g/dl (6.4-8.2)
[2022-09-25 13:19] LABS: BILIRUBIN,TOTAL 0.8 mg/dL (0.2-1)
[2022-09-25] MEDS: MEROPENEM 1 GM in DEXTROSE 5%-WATER 100 ML IVPB SCH ×2 (16:23→18:09)
[2022-09-25] MEDS: IBUPROFEN 800 MG/8 ML IJ IVPB PRN (21:25)
[2022-09-26] MEDS: MEROPENEM 1 GM in DEXTROSE 5%-WATER 100 ML IVPB SCH ×3 (04:45→17:02)
[2022-09-26] MEDS: INSULIN SLIDING SCALE (NOVOLOG) 1 VIAL SQ SCH ×4 (06:22→22:55)
[2022-09-26] MEDS: BACITRACIN ZINC 15 GM TUBE TOPICAL OINTMENT TP SCH (11:05)
[2022-09-26] MEDS: FOLIC ACID 1 MG TABLET (FP) PO SCH (11:05)
[2022-09-26] MEDS: ENOXAPARIN NA (PORCINE) 40 MG/0.4 ML DISP.SYRIN SQ SCH (11:06)
[2022-09-26] MEDS: NAPH,MB-DB/K PH,MBDB POWDER PACKET GT SCH ×2 (11:06→22:55)
[2022-09-26] MEDS: POLYETHYLENE GLYCOL (HEALTHYLAX) 3350 17 GM PACKET GT SCH ×2 (11:06→22:44)
[2022-09-26] MEDS: CHOLECALCIFEROL (VIT D3) 1,000 UNIT (25 MCG) TABLET GT SCH (11:07)
[2022-09-26] MEDS: ASCORBIC ACID 500 MG/5 ML UNIT DOSE CUP GT SCH ×2 (11:07→22:55)
[2022-09-26] MEDS: THIAMINE HCL 100 MG TABLET (FP) NGT SCH (11:07)
[2022-09-26] MEDS: LISINOPRIL 5 MG TABLET GT SCH (11:07)
[2022-09-26] MEDS: MULTIVITAMINS (DAILY MVI) TABLET (FP) PO SCH (11:07)
[2022-09-26 14:13] LABS: EOS % 5.1 % (0-4.5); HEMATOCRIT 34.5 % (35.4-49); HEMOGLOBIN 11.7 GM/dL (11.7-16.9); LYMPH % 25.3 % (8-40); MCH 29.5 pg (25.7-33.7); MEAN CELL VOLUME 86.9 fl (80-96); MEAN PLT VOLUME 7.9 fl (7.5-11.1); NEUT % 60.6 % (42.8-82.8); PLATELET COUNT 365 10^3/uL (134-434); RBC 3.97 M/mm3 (4.00-5.60); RDW 14.7 % (11.9-15.9); WHITE BLOOD COUNT 8.9 K/mm3 (4.0-10.0)
[2022-09-26 14:37] LABS: POTASSIUM 3.1 mmol/L (3.5-5.1)
[2022-09-26 14:39] LABS: ALBUMIN 2.9 g/dl (3.4-5.0); BLOOD UREA NITROGEN 21.4 mg/dL (7-18); CALCIUM 8.9 mg/dL (8.5-10.1)
[2022-09-26 14:42] LABS: BILIRUBIN,DIRECT 0.3 mg/dL (0.0-0.2); CREATININE 0.4 mg/dL (0.55-1.3)
[2022-09-26 14:44] LABS: BILIRUBIN,TOTAL 1.1 mg/dL (0.2-1); TOT PROT 6.8 g/dl (6.4-8.2)
[2022-09-27] MEDS: MEROPENEM 1 GM in DEXTROSE 5%-WATER 100 ML IVPB SCH ×4 (00:56→17:50)
[2022-09-27] MEDS: INSULIN SLIDING SCALE (NOVOLOG) 1 VIAL SQ SCH ×4 (06:02→22:20)
[2022-09-27] MEDS: BACITRACIN ZINC 15 GM TUBE TOPICAL OINTMENT TP SCH (11:00)
[2022-09-27] MEDS: LISINOPRIL 5 MG TABLET GT SCH (11:02)
[2022-09-27] MEDS: NAPH,MB-DB/K PH,MBDB POWDER PACKET GT SCH ×2 (11:02→22:20)
[2022-09-27] MEDS: POLYETHYLENE GLYCOL (HEALTHYLAX) 3350 17 GM PACKET GT SCH ×2 (11:02→21:56)
[2022-09-27] MEDS: FOLIC ACID 1 MG TABLET (FP) PO SCH (11:02)
[2022-09-27] MEDS: ENOXAPARIN NA (PORCINE) 40 MG/0.4 ML DISP.SYRIN SQ SCH (11:02)
[2022-09-27] MEDS: MULTIVITAMINS (DAILY MVI) TABLET (FP) PO SCH (11:04)
[2022-09-27] MEDS: THIAMINE HCL 100 MG TABLET (FP) NGT SCH (11:04)
[2022-09-27] MEDS: CHOLECALCIFEROL (VIT D3) 1,000 UNIT (25 MCG) TABLET GT SCH (11:05)
[2022-09-27] MEDS: ASCORBIC ACID 500 MG/5 ML UNIT DOSE CUP GT SCH ×2 (12:39→22:40)
[2022-09-28] MEDS: MEROPENEM 1 GM in DEXTROSE 5%-WATER 100 ML IVPB SCH ×3 (01:24→17:09)
[2022-09-28] MEDS: INSULIN SLIDING SCALE (NOVOLOG) 1 VIAL SQ SCH ×4 (06:03→21:33)
[2022-09-28 09:57] LABS: HEMATOCRIT 34.1 % (35.4-49); HEMOGLOBIN 11.6 GM/dL (11.7-16.9); MCH 29.7 pg (25.7-33.7); MEAN CELL VOLUME 87.6 fl (80-96); MEAN PLT VOLUME 8.3 fl (7.5-11.1); PLATELET COUNT 379 10^3/uL (134-434); RDW 14.6 % (11.9-15.9); WHITE BLOOD COUNT 7.2 K/mm3 (4.0-10.0)
[2022-09-28] MEDS: NAPH,MB-DB/K PH,MBDB POWDER PACKET GT SCH ×2 (09:59→21:33)
[2022-09-28] MEDS: THIAMINE HCL 100 MG TABLET (FP) NGT SCH (09:59)
[2022-09-28] MEDS: FOLIC ACID 1 MG TABLET (FP) PO SCH (09:59)
[2022-09-28] MEDS: CHOLECALCIFEROL (VIT D3) 1,000 UNIT (25 MCG) TABLET GT SCH (10:00)
[2022-09-28] MEDS: MULTIVITAMINS (DAILY MVI) TABLET (FP) PO SCH (10:00)
[2022-09-28] MEDS: LISINOPRIL 5 MG TABLET GT SCH (10:00)
[2022-09-28] MEDS: ENOXAPARIN NA (PORCINE) 40 MG/0.4 ML DISP.SYRIN SQ SCH (10:00)
[2022-09-28] MEDS: BACITRACIN ZINC 15 GM TUBE TOPICAL OINTMENT TP SCH (10:01)
[2022-09-28] MEDS: POLYETHYLENE GLYCOL (HEALTHYLAX) 3350 17 GM PACKET GT SCH ×2 (10:01→21:33)
[2022-09-28 10:08] LABS: POTASSIUM 3.3 mmol/L (3.5-5.1)
[2022-09-28] MEDS: ASCORBIC ACID 500 MG/5 ML UNIT DOSE CUP GT SCH ×2 (10:20→21:33)
[2022-09-28 10:37] LABS: CALCIUM 8.8 mg/dL (8.5-10.1)
[2022-09-28 10:38] LABS: BLOOD UREA NITROGEN 17.5 mg/dL (7-18)
[2022-09-28 10:41] LABS: CREATININE 0.5 mg/dL (0.55-1.3); PHOSPHOROUS 2.2 mg/dL (2.5-4.9)
[2022-09-28] MEDS ORDERED: POTASSIUM CHLORIDE ORAL LIQUID 20 MEQ/15 ML GT ONE (11:45)
[2022-09-29] MEDS: MEROPENEM 1 GM in DEXTROSE 5%-WATER 100 ML IVPB SCH ×3 (01:41→17:18)
[2022-09-29] MEDS: INSULIN SLIDING SCALE (NOVOLOG) 1 VIAL SQ SCH ×3 (06:04→17:14)
[2022-09-29] MEDS: CHOLECALCIFEROL (VIT D3) 1,000 UNIT (25 MCG) TABLET GT SCH (09:59)
[2022-09-29] MEDS: MULTIVITAMINS (DAILY MVI) TABLET (FP) PO SCH (09:59)
[2022-09-29] MEDS: LISINOPRIL 5 MG TABLET GT SCH (09:59)
[2022-09-29] MEDS: THIAMINE HCL 100 MG TABLET (FP) NGT SCH (09:59)
[2022-09-29] MEDS: ENOXAPARIN NA (PORCINE) 40 MG/0.4 ML DISP.SYRIN SQ SCH (09:59)
[2022-09-29] MEDS: NAPH,MB-DB/K PH,MBDB POWDER PACKET GT SCH (10:00)
[2022-09-29] MEDS: ASCORBIC ACID 500 MG/5 ML UNIT DOSE CUP GT SCH (10:00)
[2022-09-29] MEDS: FOLIC ACID 1 MG TABLET (FP) PO SCH (10:00)
[2022-09-29] MEDS: POLYETHYLENE GLYCOL (HEALTHYLAX) 3350 17 GM PACKET GT SCH (10:00)
[2022-09-29] MEDS: BACITRACIN ZINC 15 GM TUBE TOPICAL OINTMENT TP SCH (10:21)
[2022-09-29 18:39] VITALS: RESP 18
[2022-09-29 20:13] VITALS: BP 116/73; PULSE 79; TEMP 98.2
== END 2022-09-29 08:00 | DRG 391 ==
LOC: JER 17:27 → JERBED 20:31 → J5S 09-13 16:40
PROVIDERS: ADMIT Internal Medicine
PROC: 5A1955Z Respiratory Ventilation, Greater than 96 Consecutive Hours (ICD-10-PCS; principal; 2022-09-12)
PROC: 0DJD8ZZ Inspection of Lower Intestinal Tract, Via Natural or Artificial Opening Endoscopic (ICD-10-PCS; 2022-09-20)
PROC: 0D7E8ZZ Dilation of Large Intestine, Via Natural or Artificial Opening Endoscopic (ICD-10-PCS; 2022-09-20)
DX: K59.81 Ogilvie syndrome (principal); J18.9 Pneumonia, unspecified organism; R53.2 Functional quadriplegia; G81.91 Hemiplegia, unspecified affecting right dominant side; N39.0 Urinary tract infection, site not specified; J98.11 Atelectasis; J90 Pleural effusion, not elsewhere classified; J96.10 Chronic respiratory failure, unspecified whether with hypoxia or hypercapnia; R14.0 Abdominal distension (gaseous); I10 Essential (primary) hypertension; E11.319 Type 2 diabetes mellitus with unspecified diabetic retinopathy without macular edema; R13.10 Dysphagia, unspecified; F03.90 Unspecified dementia, unspecified severity, without behavioral disturbance, psychotic disturbance, mood disturbance, and anxiety; K40.90 Unilateral inguinal hernia, without obstruction or gangrene, not specified as recurrent; N20.0 Calculus of kidney; B96.1 Klebsiella pneumoniae [K. pneumoniae] as the cause of diseases classified elsewhere; E87.6 Hypokalemia; E11.43 Type 2 diabetes mellitus with diabetic autonomic (poly)neuropathy; K31.84 Gastroparesis; Z93.0 Tracheostomy status; Z74.01 Bed confinement status
CPT/HCPCS: 0241U-QW; 36415; 71045-TC-FY; 74018-TC-FY; 74177-TC; 76705-TC; 80048; 80053; 80076; 81003; 82308; 82962; 83036; 83605; 83735; 84100; 85025; 85027; 85610; 85651; 85730; 86140; 86850; 86900; 86901; 87040; 87070; 87086; 87186; 87205; 93005; 93010; 93970-TC; 94002; 99285-25; C9803-CS; J0475; Q9967; U0003; U0005